=== PATIENT | male | born 1965 | race Two or more races ===

== ENCOUNTER 2017-08-15 17:56 | Inpatient (IN) | payer MEDICARE, OTHER ==
[~2017-08-15] VITALS: Ht 185.4 cm; Wt 162.4 kg
--- NOTE | 2017-08-15 19:15 | NUR ---
RN ADMITTING NOTES ADMITTED PATIENT FROM [facility] VIA [facility], ACCOMPANIED BY 3 framer. PATIENT WITH CC OF INTERMITTENT CHEST PAIN FOR 2 DAYS. PATIENT'S DESCRIPTION OF CHEST PAIN IS MIDSTERNAL, NONRADIATING, PRESSURE-LIKE WITH OCCASIONAL SHARP, STABBING PAIN. PATIENT MEDICATED AT [facility] WITH HELP. PATIENT ADMITTED ON TELE FOR CHEST PAIN, NTEMI. PATIENT ON TIME OF ADMISSION HAS NO C/O PAIN/DISCOMFORT. PATIENT IS ALERT AND ORIENTED X4. ABLE TO AMBULATE WITH STEADY GAIT NOTED, NO WEAKNESS, NO DIZZINESS. PATIENT CONNECTED ON TELE, SR WITH HR OF 86. 2LPM OF O2 VIA NC GIVEN FOR O2 SUPPLEMENTATION. PATIENT WITH INTACT SKIN, NO SKIN BREAKDOWN. WITH L FOREARM G18, FLUSHED AND PATENT, NO SIGNS OF INFILTRATION. PATIENT ORIENTED TO UNIT PROTOCOLS. NEEDS ANTICIPATED AND MET. SAFETY AND COMFORT ENSURED. BED IN LOW AND LOCKED POSITION. CALL LIGHT IN REACH. CALLED [facility] FOR ADMIT ORDERS, UPDATED DR. PEREZ OF THE PATIENT'S CONDITION.
[2017-08-15 20:40] VITALS: BP 113/67
[2017-08-15] MEDS ORDERED: METO-302 PO (21:52)
[2017-08-15] MEDS ORDERED: FEBU80TA PO (21:52)
[2017-08-15] MEDS ORDERED: HYDR-548 PO (21:52)
[2017-08-15] MEDS ORDERED: TAMS-12 PO (21:52)
[2017-08-15] MEDS ORDERED: HYDR1DIS2 IVP (21:52)
[2017-08-15] MEDS ORDERED: PANT40TA4 PO (21:52)
[2017-08-15] MEDS ORDERED: HYDR2TAB35 PO (21:52)
[2017-08-15] MEDS ORDERED: COLC0.6C3 PO (21:52)
[2017-08-15] MEDS ORDERED: LORAZEPAM 1 MG TABLET PO PRN (23:00)
[2017-08-15] MEDS ORDERED: NITROGLYCERIN 0.4 MG/TAB BOTTLE SL PRN (23:00)
[2017-08-15] MEDS ORDERED: MORPHINE SULFATE INJ 2 MG/ML DISP.SYRIN IV PRN (23:00)
[2017-08-15] MEDS ORDERED: NTG 50 MG/D5W250 ML BOTTL 250 ML IV PRN (23:00)
[2017-08-15] MEDS ORDERED: ONDANSETRON HCL/PF 4 MG/2 ML VIAL IVP PRN (23:00)
[2017-08-15] MEDS ORDERED: DOCUSATE SODIUM 100 MG CAPSULE PO PRN (23:00)
[2017-08-15] MEDS ORDERED: ZOLPIDEM TARTRATE 5 MG TABLET PO PRN (23:00)
[2017-08-15] MEDS ORDERED: ACETAMINOPHEN 325 MG TABLET PO PRN (23:00)
[2017-08-15] MEDS ORDERED: NICOTINE PATCH (21MG) 21 MG PATCH.TD24 TD ONE (23:29)
[2017-08-15] MEDS ORDERED: HYDROCODONE/APAP 10/325MG 1 EA TABLET ONE (23:38)
[2017-08-15] MEDS: NICOTINE PATCH (21MG) 21 MG PATCH.TD24 TD SCH (23:44)
[2017-08-15] MEDS: HYDROCODONE/APAP 10/325MG 1 EA TABLET PO PRN (23:45)
[2017-08-16] VITALS (7 sets, daily range): BP systolic 104–150; BP diastolic 61–82
[2017-08-16] MEDS ORDERED: ENOXAPARIN SODIUM 80 MG/0.8 ML DISP.SYRIN SQ ONE (00:26)
[2017-08-16] MEDS ORDERED: ENOXAPARIN SODIUM 80 MG/0.8 ML DISP.SYRIN SQ SCH (00:30)
--- NOTE | 2017-08-16 00:33 | NUR ---
RN NOTES DR. PEREZ IN THE UNIT. CLARIFICATION OF ORDERS MADE. INFORMED MD OF THE PATIENT'S TROPONIN VALUE OF 0.212, LOVENOX ORDERED. NOTED AND CARRIED OUT. DR. PEREZ ASSESSED THE PATIENT.
[2017-08-16] MEDS ORDERED: HYDROCORTISONE ACETATE 25 MG/SUPP.RECT SUPP.RECT RC PRN (01:00)
[2017-08-16] MEDS ORDERED: NORMAL SALINE FLUSH 10 ML SYR IV SCH (05:00)
[2017-08-16 06:36] LABS: BASOPHILS % (AUTO) 0.4 % (0.0-2.0); EOSINOPHILS # (AUTO) 0.4 /CMM (0.0-0.7); EOSINOPHILS % (AUTO) 3.8 % (0.0-6.0); HEMATOCRIT 37 % (39-51); HEMOGLOBIN 12.1 g/dL (13.5-17.5); LYMPHOCYTES # (AUTO) 3.4 /CMM (0.8-4.8); MEAN CORPUSCULAR HEMOGLOBIN 25 PG (26.0-33.0); MEAN CORPUSCULAR HGB CONC 33 g/dl (31.0-36.0); MEAN CORPUSCULAR VOLUME 78 fL (80-96); MONOCYTES # (AUTO) 0.7 /CMM (0.1-1.30); NEUTROPHILS # (AUTO) 6.4 /CMM (1.8-8.9); NEUTROPHILS % (AUTO) 58.8 % (43.0-81.0); PLATELET COUNT (AUTO) 290 /CMM (150-450); RDW COEFFICIENT OF VARIATION 16.8 (11.5-15.0); RED BLOOD CELL COUNT(AUTO) 4.76 MIL/uL (4.5-6.0); WHITE BLOOD COUNT (AUTO) 10.8 K/uL (4.3-11.0)
--- NOTE | 2017-08-16 06:39 | NUR ---
RN NOTES BELONGINGS LIST DONE, CHECKED BY RN AND ORACLE SOA CONSULTANT, VERIFIED AND CONFIRMED BY PATIENT. SIGNED AND FILED IN CHART. Addendum: 08/16/17 at 1036 by ABEL AMARO RN RN NOTE RN SPOKE WITH MD FOURNIER AND MD OCHOA D/C OF METOPROLOL AND CONTINUE COREG. PATIENT FAMILY MEMBER BROUGHT THE HOME SUPPLY OF TYE HU SUPPLIED MEDICATION TO THE PHARMACY
[2017-08-16 06:46] LABS: MAGNESIUM 1.7 mg/dL (1.8-2.4); PHOSPHORUS 3.7 mg/dL (2.5-4.9)
[2017-08-16 06:47] LABS: INR 0.91 (0.87-1.13); PROTHROMBIN TIME 9.5 SECS (9.5-12.7)
[2017-08-16] MEDS ORDERED: MORPHINE SULFATE INJ 10 MG/ML DISP.SYRIN IV PRN (07:30)
--- NOTE | 2017-08-16 08:00 | NUR ---
RN INITIAL NOTE PATIENT STABLE AT THIS TIME NO SOB OR DISCOMFORT NOTE HOWEVER THAT PATIENT STATES BEING HUNGRY. PATIENT ON ROOM AIR AND AMBULATORY , RN ADVISED THE PATIENT TO SEE IF A FAMILY MEMBER COULD BRING HOME MEDICATION TO THE HOSPITAL DUE TO THE LACK OF MEDICATION , PATIENT ACKNOWLEDGED AND STATES SOMEONE WILL BRING THE MEDICATION LIANE, ALL MORNING MEDICATION TO BE GIVEN , PATIENT ABLE TO SELF TURN RN WILL CONTINUE TO FOLLOW THROUGHOUT THE DAY
[2017-08-16 08:24] LABS: CALCIUM, SERUM 8.5 mg/dL (8.5-10.1); CREATININE 0.9 mg/dL (0.6-1.3); POTASSIUM 4.1 mmol/L (3.5-5.1)
[2017-08-16] MEDS: COLCHICINE 0.6 MG TABLET PO PRN (08:46)
[2017-08-16] MEDS: CARVEDILOL 12.5 MG TABLET PO SCH ×2 (08:47→20:52)
[2017-08-16] MEDS: NICOTINE PATCH (21MG) 21 MG PATCH.TD24 TD SCH (08:48)
[2017-08-16] MEDS: ASPIRIN 81 MG TAB.CHEW PO SCH (08:50)
[2017-08-16] MEDS: PANTOPRAZOLE 40 MG TABLET.DR PO SCH (08:52)
[2017-08-16] MEDS ORDERED: METOPROLOL SUCCINATE 25 MG TAB.SR.24H PO SCH (09:00)
[2017-08-16] MEDS: hydrALAZINE HCL 50 MG TABLET PO SCH ×3 (10:26→16:14)
[2017-08-16] MEDS: Magnesium 1GM/D5W 100ML PREMIX 100 ML IV SCH ×2 (10:26→11:12)
[2017-08-16] MEDS: ENOXAPARIN SODIUM 100 MG/ML DISP.SYRIN SQ SCH ×2 (11:23→23:47)
[2017-08-16] MEDS: ULORIC 80 MG PO SCH (13:16)
[2017-08-16 14:27] LABS: APPEARANCE,URINE CLOUDY (CLEAR); BILIRUBIN,URINE NEGATIVE (NEGATIVE); BLOOD, URINE TRACE-INTA Ery/uL (NEGATIVE); COLOR,URINE YELLOW (YELLOW); KETONES,URINE NEGATIVE (NEGATIVE); LEUKOCYTE ESTERASE ,URINE 2+ (NEGATIVE); NITRITE, URINE POSITIVE (NEGATIVE); PH,URINE 5.5 (5.0-8.0); PROTEIN,URINE NEGATIVE (NEGATIVE); UGLUCOSE NEGATIVE (NEGATIVE); UROBILINOGEN,URINE 0.2 EU/dL (0.2)
[2017-08-16 14:50] LABS: BACTERIA,URINE 3+ /HPF (None Seen)
--- NOTE | 2017-08-16 18:55 | NUR ---
RN CLOSING NOTE PATIENT REMAINS STABLE THROUGHOUT THE SHIFT NO CHANGE IN ADLS PATIENT INDEPENDENT WITH ADLS , NO SOB NOTED , NO FEVER NOTED LABS EXCEPTED , PATIENT SELF TURNS AND REPOSITIONED X2 HR FAMILY VISITED THROUGHOUT THE DAY NO CONCERNS NOTED PATIENT UPDATED ON PLAN OF CARE , SAFETY MEASURES INSURED CALL LIGHT WITHIN REACH RN WILL ENDORSE FURTHER CARE TO PM RN
--- NOTE | 2017-08-16 20:00 | NUR ---
VSS 98.8-75 NORMAL SINUS RHYTHM-20 BP 126/77. SATS 97% ON ROOM AIR. COLOR GOOD AND GENERAL APPEARANCE IS GOOD. A&O X 3 WITH APPROPRIATE AFFECT BUT APPEARS SLIGHTLY DEPRESSED; YET IS COOPERATIVE TO ALL PHASES OF NURSING CARE. SKIN WARM, DRY, AND INTACT WITH IVHL #22 TO LEFT INNER FOREARM. SELF TURNS, REPOSITIONS, AND IS AMBULATORY. NO SKIN BREAKDOWNS. NO JVD OR OTHER EDEMAS WITH ALL PERIPHERAL PULSES EASILY PALPABLE. OBVIOUS HISTORY OF MORBID OBESITY WITHOUT MOBILITY ISSUES. AMBULATES WITH BRPS WITH A STEADY GAIT WITHOUT ASSIST. ABDOMEN SOFTLY DISTENDED WITH AUDIBLE BOWEL SOUNDS. NO NAUSEA OR EMESIS. LUNGS TO CLEAR TO AUSCULTATION TO BILATERAL UPPER LOBES. ROOM AIR. NO COUGH OR PHLEGM. ADMITTED WITH DIAGNOSIS OF CHEST PAIN BUT REMAINS IN NSR WITHOUT ECTOPY. NO C/O OF CHEST PAINS AT THIS TIME. NO SIGNS OF ACUTE CARDIAC/RESPIRATORY DISTRESS OR SUPPRESSION.
[2017-08-16] MEDS: TAMSULOSIN 0.4 MG CAP.SR.24H PO SCH (21:55)
[2017-08-16] MEDS: SIMVASTATIN 20 MG TABLET PO SCH (21:55)
[2017-08-17] VITALS: BP 112/73
--- NOTE | 2017-08-17 | NUR ---
VSS 98.8-68 NSR-20 BP 112/73. SATS 97% ON ROOM AIR. PATIENT SEEMS TO REPEATEDLY SELF REMOVE THE O2 @ 2 LITERS NC. PATIENT SHOWS NO SIGNS OF ACUTE DISTRESS. DENIES CHEST PAINS. RESTS COMFORTABLY.
[2017-08-17 04:00] VITALS: BP 117/66
--- NOTE | 2017-08-17 04:00 | NUR ---
VSS 98.0-67 NSR-20 BP 117/66. SATS 96% ON ROOM AIR. NURSE GAVE PATIENT A TUNA SANDWICH UPON REQUEST WITH JUICES. PATIENT EXERCISES BRPS WITHOUT ASSIST WITH NO C/O CHEST PAIN AND/OR DYSPNEA. COLOR GOOD. NO SIGNS OF ACUTE CARDIAC/RESPIRATORY DISTRESS OR SUPPRESSION.
[2017-08-17] MEDS: PANTOPRAZOLE 40 MG TABLET.DR PO SCH (07:03)
[2017-08-17 07:04] LABS: BASOPHILS % (AUTO) 0.4 % (0.0-2.0); EOSINOPHILS # (AUTO) 0.5 /CMM (0.0-0.7); EOSINOPHILS % (AUTO) 5.2 % (0.0-6.0); HEMATOCRIT 41 % (39-51); HEMOGLOBIN 12.8 g/dL (13.5-17.5); LYMPHOCYTES # (AUTO) 3.3 /CMM (0.8-4.8); LYMPHOCYTES % (AUTO) 31.5 % (20.0-44.0); MEAN CORPUSCULAR HEMOGLOBIN 24 PG (26.0-33.0); MEAN CORPUSCULAR HGB CONC 32 g/dl (31.0-36.0); MEAN CORPUSCULAR VOLUME 77 fL (80-96); MONOCYTES # (AUTO) 0.8 /CMM (0.1-1.30); MONOCYTES % (AUTO) 7.7 % (2.0-12.0); NEUTROPHILS # (AUTO) 5.9 /CMM (1.8-8.9); NEUTROPHILS % (AUTO) 55.2 % (43.0-81.0); PLATELET COUNT (AUTO) 324 /CMM (150-450); RDW COEFFICIENT OF VARIATION 16.7 (11.5-15.0); RED BLOOD CELL COUNT(AUTO) 5.26 MIL/uL (4.5-6.0); WHITE BLOOD COUNT (AUTO) 10.6 K/uL (4.3-11.0)
[2017-08-17 07:06] LABS: BILIRUBIN,TOTAL 0.2 mg/dL (0.2-1.0); CALCIUM, SERUM 9.2 mg/dL (8.5-10.1); CREATININE 0.8 mg/dL (0.6-1.3); PHOSPHORUS 3.1 mg/dL (2.5-4.9); POTASSIUM 4.1 mmol/L (3.5-5.1)
[2017-08-17 07:07] LABS: ALBUMIN 2.8 g/dL (3.4-5.0); MAGNESIUM 1.8 mg/dL (1.8-2.4); TOTAL PROTEIN, SERUM 7.3 g/dL (6.4-8.2)
[2017-08-17] MEDS: HYDROCODONE/APAP 10/325MG 1 EA TABLET PO PRN (07:23)
--- NOTE | 2017-08-17 07:30 | NUR ---
AT SHIFT CHANGE, PATIENT C/O 6-10 HEADACHE FOR NO APPARENT REASON. NURSE MEDICATED PATIENT WITH ONE NORCO 10/325 PO PRN AT THIS TIME. DAY NURSE MADE AWARE OF THESE FACTS AND WILL COMPLETE FOLLOWUP.
--- NOTE | 2017-08-17 07:51 | NUR ---
LOGISTICS LOSS PREVENTION MANAGER NOTES PATIENT IN BED, AWAKE. A/OX3. ON ROOM AIR, TOLERATING WELL. NO SOB. ON TELE MONITOR SINUS RHYTHM HR 64. IV LFA G18 PATENT AND INTACT, FLUSHES WELL. APPEARS COMFORTABLE IN BED, LYING ON HIS BACK. CALL LIGHT WITHIN REACH. WILL CONT TO MONITOR.
[2017-08-17 08:00] VITALS: BP 112/66
[2017-08-17] MEDS: NICOTINE PATCH (21MG) 21 MG PATCH.TD24 TD SCH (08:53)
[2017-08-17] MEDS: COLCHICINE 0.6 MG TABLET PO PRN (08:54)
[2017-08-17] MEDS: ULORIC 80 MG PO SCH (08:54)
[2017-08-17] MEDS: ASPIRIN 81 MG TAB.CHEW PO SCH (08:58)
[2017-08-17] MEDS: hydrALAZINE HCL 50 MG TABLET PO SCH ×3 (08:59→17:03)
[2017-08-17] MEDS: CARVEDILOL 12.5 MG TABLET PO SCH ×2 (08:59→21:00)
[2017-08-17 12:00] VITALS: BP 113/63
[2017-08-17] MEDS: ENOXAPARIN SODIUM 100 MG/ML DISP.SYRIN SQ SCH ×2 (13:07→23:49)
[2017-08-17 16:00] VITALS: BP 114/69
--- NOTE | 2017-08-17 18:32 | NUR ---
EXPOSURE MACHINE OPERATOR CLOSING NOTES PATIENT SITTING UP IN BED, HAS GOOD APPETITE. ON TELE MONITOR SINUS RHYTHM HR 69. NO EPISODE OF CHEST PAIN DURING THE SHIFT. IV IN RIGHT AC G18 PATENT AND INTACT, ANOTHER IV IN LFA G18 PATENT AND INTACT. INCREASE TROP 0.213 FROM 0.212, DR. PAL IS AWARE WITH NO NEW ORDERS. PATIENT WILL BE NPO MN FOR [facility] TOMORROW, PATIENT CONSENTED THE PROCEDURE. CONSENT FORM PLACE IN THE CHART. WILL ENDORSE TO BALL TRUING MACHINE OPERATOR RN FOR [place].
--- NOTE | 2017-08-17 19:05 | NUR ---
ADVERTISING COPYWRITER OPENING NOTES RECEIVED REPORT FROM BAILEE GAMBLE. PATIENT A/A/O X4, ABLE TO MAKE NEEDS KNOWN. BREATHING EVEN & UNLABORED, ON ROOM AIR. DENIES SOB OR DIFFICULTY BREATHING. ON TELE SINUS RHYTHM IN THE 70S. DENIES ANY CHEST PAIN OR DISCOMFORT. RIGHT AC IV #18 INTACT & FLUSHING WELL W/ DRESSING CDI & SALINE LOCKED. ABLE TO AMBULATE INDEPENDENTLY W/ BRP. SAFETY MEASURES IN PLACE W/ SIDE RAILS UP, BED LOCKED & CALL LIGHT WITHIN REACH.
[2017-08-17 20:00] VITALS: BP 98/63
[2017-08-17] MEDS: SIMVASTATIN 20 MG TABLET PO SCH (21:37)
[2017-08-17] MEDS: TAMSULOSIN 0.4 MG CAP.SR.24H PO SCH (21:37)
[2017-08-18] VITALS (9 sets, daily range): BP systolic 105–127; BP diastolic 52–80
--- NOTE | 2017-08-18 07:23 | NUR ---
RN NOTES RECEIVED PT FROM DUPLICATION SPECIALIST IN STABLE CONDITION RESTING IN BED, A&0X3, ON ROOM AIR NO SOB OR DISTRESS NOTED. SR ON THE TELE MONITOR WITH PVCS HR IN THE 80S. PT CURRENTLY NPO. RAC 18G IV SITE DRY AND INTACT NO IVF. BED LOCKED AND IN LOWEST POSITION, CALL LIGHT WITHIN REACH, SIDE RAILS UPX3, CALL LIGHT WITHIN REACH, WILL CONT TO MONITOR.
[2017-08-18] MEDS: hydrALAZINE HCL 50 MG TABLET PO SCH ×2 (09:00→13:00)
[2017-08-18] MEDS: CARVEDILOL 12.5 MG TABLET PO SCH (10:35)
[2017-08-18] MEDS ORDERED: IOHEXOL-350 100 ML VIAL IV ONE (10:56)
[2017-08-18] MEDS ORDERED: CT SWABBABLE VALVE TRANS SET 1 EA INFUS.SET MC ONE (10:56)
[2017-08-18] MEDS ORDERED: IV NS 0.9% 250 ML IV ONE (10:56)
--- NOTE | 2017-08-18 10:58 | NUR ---
PT TO CT VIA WHEELCHAIR FOR CTA. CONSENT SIGNED . VSS PT REPORTS HERE FOR LT SIDED CHEST PAIN, INTERMITTENT SHARP NON PROVOKED X 1 WEEK. OTHERWISE DENIES ACTIVE CHEST PAIN NOW. DENIES SIGNIFICANT MEDICAL CONDITION.
[2017-08-18] MEDS ORDERED: NITROGLYCERIN 0.4 MG/TAB BOTTLE ONE (10:59)
[2017-08-18] MEDS ORDERED: METOPROLOL TARTRATE INJ 5 MG/5 ML AMPUL ONE ×3 (10:59→11:16)
--- NOTE | 2017-08-18 11:03 | NUR ---
HR 78. METOPROLOL 5 MG SIVP ADMINISTERED. PT REMAINS ON MONITOR
--- NOTE | 2017-08-18 11:18 | NUR ---
[facility]
--- NOTE | 2017-08-18 11:22 | NUR ---
PRECEDURE IN PROGRESS.TOLERATING WELL
--- NOTE | 2017-08-18 11:24 | NUR ---
NTG 0.4 MG SL ADMINISTERED PRIOR CONSTRAST
--- NOTE | 2017-08-18 11:30 | NUR ---
PROCEDURE COMPLETED. TOLERATED WELL. DENIES ANY CP/DYSPNEA, N/V. VSS
[2017-08-18] MEDS: ULORIC 80 MG PO SCH (12:04)
[2017-08-18] MEDS: NICOTINE PATCH (21MG) 21 MG PATCH.TD24 TD SCH (12:04)
[2017-08-18] MEDS: PANTOPRAZOLE 40 MG TABLET.DR PO SCH (12:04)
[2017-08-18] MEDS: ASPIRIN 81 MG TAB.CHEW PO SCH (12:05)
--- NOTE | 2017-08-18 12:30 | NUR ---
СВЕТЛАНА received a call from pt. requesting a verification of admission letter for [email or web address] since pt. was scheduled to travel to [facility] on Wednesday 08/15 and was unable to do so due to hospitalization. СВЕТЛАНА completed letter and gave the letter to Pat in case management to give to the patient.
[2017-08-18] MEDS ORDERED: SIMV20TA6 PO (12:44)
[2017-08-18] MEDS ORDERED: NICO1PAT28 TD (12:44)
[2017-08-18] MEDS ORDERED: CARV12.52 PO (12:44)
[2017-08-18] MEDS ORDERED: ASPI81TA2 PO (12:44)
[2017-08-18] MEDS ORDERED: LEVOFLOXACIN (500MG) 500 MG TABLET PO SCH (13:00)
--- NOTE | 2017-08-18 14:00 | NUR ---
RN NOTES PT ANXIOUS TO GO HOME, PER DR ALTAMIRANO, HE CAN CALL TO GET RESULTS OF SCAN INSTEAD OF WAITING HERE. PT DISCHARGED IN STABLE CONDITION, WALKED TO [facility].
== END 2017-08-18 14:30 | disposition home or self-care (01) | DRG 280 ==
LOC: TELE1 17:56 → MEDSG1 08-18 10:10
PROVIDERS: ADMIT Internal Medicine; ATTEND Internal Medicine
DX: I21.4 Non-ST elevation (NSTEMI) myocardial infarction (principal); E43 Unspecified severe protein-calorie malnutrition; Z68.42 Body mass index [BMI] 45.0-49.9, adult; E66.01 Morbid (severe) obesity due to excess calories; E78.5 Hyperlipidemia, unspecified; K21.9 Gastro-esophageal reflux disease without esophagitis; F17.210 Nicotine dependence, cigarettes, uncomplicated; I10 Essential (primary) hypertension; K64.9 Unspecified hemorrhoids; N40.0 Benign prostatic hyperplasia without lower urinary tract symptoms; M10.9 Gout, unspecified; G47.33 Obstructive sleep apnea (adult) (pediatric)
CPT/HCPCS: 36415; 71010-TC; 75574; 80048-TC; 80053-TC; 80061-TC; 80305; 81000-TC; 82150-TC; 83690-TC; 83735-TC; 84100-TC; 84484-TC; 85025-TC; 85610-TC; 85730-TC; 87086-TC; 87186-TC; 93307-TC; A4216; J1650; J3475; J3490; J7050; Q9967; Z7610

== ENCOUNTER 2021-04-16 17:29 | Emergency (ER) | payer MEDICARE, OTHER ==
[~2021-04-16] VITALS: Ht 185.4 cm; Wt 174.6 kg
[~2021-04-16 17:29] MED LIST: ASPI-1169 PO; CARV12.52 PO; COLC0.6C3 PO; FEBU80TA PO; NICO1PAT28 TD; PANT40TA49 PO; SIMV-46 PO; TAMS-12 PO
[2021-04-16 17:33] VITALS: BP 135/84
--- NOTE | 2021-04-16 17:59 | NUR ---
PT IS WHEELED TO CT SCAN VIA [facility].
--- NOTE | 2021-04-16 19:05 | NUR ---
CANE PROVIDED REQUESTED BY THE PT.
--- NOTE | 2021-04-16 19:11 | NUR ---
Patient discharged to home in stable condition. Written and verbal after care instructions given. Patient verbalizes understanding of instruction.
== END 2021-04-16 19:14 | disposition home or self-care (01) ==
LOC: ER 17:45
DX: S93.491A Sprain of other ligament of right ankle, initial encounter (principal); S09.8XXA Other specified injuries of head, initial encounter; I10 Essential (primary) hypertension; K21.9 Gastro-esophageal reflux disease without esophagitis; M10.9 Gout, unspecified; Z98.890 Other specified postprocedural states; Z90.49 Acquired absence of other specified parts of digestive tract; Z60.2 Problems related to living alone; Z86.73 Personal history of transient ischemic attack (TIA), and cerebral infarction without residual deficits; Z79.899 Other long term (current) drug therapy; Z79.82 Long term (current) use of aspirin; W07.XXXA Fall from chair, initial encounter; Y93.89 Activity, other specified; Y92.89 Other specified places as the place of occurrence of the external cause; Y99.8 Other external cause status
CPT/HCPCS: 70450-TC; 72125-TC; 73610-TC; 73630-TC